=== PATIENT | female | born 1990 | race Two or more races ===

== ENCOUNTER 2017-12-18 19:29 | Emergency (ER) | payer OTHER, MEDICAID ==
--- NOTE | 2017-12-18 22:21 | ER Document Report ---
ED Medical Screen (RME) - General Chief Complaint: Vaginal Bleeding Stated Complaint: BLEEDING AND DISCHARGE Time Seen by Provider: 12/18/17 22:19 Notes: 26-year-old female, chief complaint of lower abdominal/pelvic pain with radiation to the flank, nausea, and vaginal bleeding that started this evening. She has an IUD. Denies vomiting, fever, abnormal vaginal discharge. TRAVEL OUTSIDE OF THE [place] IN LAST 30 DAYS: No - Related Data Allergies/Adverse Reactions: No Known Allergies Allergy (Unverified 12/18/17 19:33) Physical Exam - Vital signs Vitals: Temp Pulse Resp BP Pulse Ox 99.1 F 93 18 122/77 100 12/18/17 20:06 12/18/17 20:06 12/18/17 20:06 12/18/17 20:06 12/18/17 20:06 - General General appearance: Appears well In distress: None - Abdominal Tenderness: Nontender. No: Guarding Course - Vital Signs Vital signs: Temp Pulse Resp BP Pulse Ox 99.1 F 93 18 122/77 100 12/18/17 20:06 12/18/17 20:06 12/18/17 20:06 12/18/17 20:06 12/18/17 20:06
[2017-12-18 23:22] LABS: APPEARANCE,URINE SLIGHTLY-CLOUDY; BILIRUBIN,URINE NEGATIVE (NEGATIVE); COLOR,URINE YELLOW; GLUCOSE, URINE NEGATIVE (NEGATIVE); KETONES,URINE NEGATIVE (NEGATIVE); LEUKOCYTE ESTERASE,URINE NEGATIVE (NEGATIVE); NITRITE,URINE NEGATIVE (NEGATIVE); PROTEIN,URINE NEGATIVE (NEGATIVE); URINE SPECIFIC GRAVITY 1.021; UROBILINOGEN,URINE NEGATIVE mg/dL (<2.0)
--- NOTE | 2017-12-18 23:29 | RADIOLOGY REPORT (SQ) ---
US TRANSVAGINAL HISTORY: Sharp pelvic pain and bleeding. Nausea. IUD. COMPARISON: None. TECHNIQUE: Grayscale and color Doppler transvaginal ultrasound of the pelvis was performed. FINDINGS: The uterus measures 8.7 x 5.1 x 4.5 cm. The endometrium measures 7 mm in thickness and contains an IUD in situ. Cervix measures 3.2 cm. The right ovary measures 4.3 x 3.2 x 3.0 cm. The left ovary measures 5.4 x 5.4 x 5.2 cm and contains a 4.4 x 4.2 x 3.9 cm cyst. Both ovaries contain normal follicles. Normal color Doppler flow is seen in both ovaries. Trace free fluid is seen in the pelvis. IMPRESSION: 4.4 cm left ovarian cyst. IUD in situ. Trace free fluid likely physiologic.
--- NOTE | 2017-12-19 00:47 | ER Document Report ---
ED General - General Chief Complaint: Vaginal Bleeding Stated Complaint: BLEEDING AND DISCHARGE Time Seen by Provider: 12/18/17 22:19 TRAVEL OUTSIDE OF THE [place] IN LAST 30 DAYS: No - HPI Notes: 26-year-old female who presents with vaginal bleeding and discharge. Patient has several complaints, describes a couple of weeks of intermittent vaginal bleeding. Mostly pinkish. However today it was bright red and heavier. She states her periods are somewhat irregular usually which would not necessarily be due for her period now. She has had some intermittent vaginal discharge as well and some intermittent abdominal pain and cramping, not in the last couple of days. Occasional nausea but no vomiting. Was seen in a "free clinic" today and told she had a negative urine test. Gradual onset, nonradiating. No other modifying factors, no other associated symptoms, no other provocative or palliative factors. - Related Data Allergies/Adverse Reactions: No Known Allergies Allergy (Unverified 12/18/17 19:33) Past Medical History - Social History Smoking Status: Current Every Day Smoker Frequency of alcohol use: Occasional Drug Abuse: None Family History: Reviewed & Not Pertinent Patient has suicidal ideation: No Patient has homicidal ideation: No Endocrine Medical History: Reports: Hx Diabetes Mellitus Type 1 Renal/ Medical History: Denies: Hx Peritoneal Dialysis Review of Systems - Review of Systems Notes: Review of systems as in the history of present illness, otherwise negative x 10 systems. Physical Exam - Vital signs Vitals: Temp Pulse Resp BP Pulse Ox 99.1 F 93 18 122/77 100 12/18/17 20:06 12/18/17 20:06 12/18/17 20:06 12/18/17 20:06 12/18/17 20:06 - Notes Notes: General: Well developed . HEENT: Normocephalic, atraumatic. Pupils equal round reactive to light. No JVD. Chest: No trauma. Respiratory: Good air exchange, normal excursion. Cardiac: Regular rhythm. No murmurs or gallops. Abdomen: Soft, benign. Nondistended. Nontender. Back: No asymmetry or gross abnormality. Motor: Grossly normal power and tone. Neurologic: Alert, nonfocal. Cranial nerves II-12 are intact. Sensation intact. Vascular: Well perfused. Normal peripheral pulses. Skin: No petechiae or purpura. Course - Re-evaluation Re-evalutation: 12/19/17 00:47 Well-appearing 26-year-old female the after mentioned symptoms. Consider STI, . Less likely related complaint given the negative UPT this morning. Plan to proceed with follow-up of orders carried out by physician in triage. Ultrasound of note is reviewed, this is negative. Pelvic exam is pending 12/19/17 02:17 Available labs reviewed. CBC unremarkable, chemistries unremarkable. Serum test was initially not done, is pending/canceled. Ultrasound unremarkable. Patient is asking to be discharged states she is to go to work. She is refused to stay for pelvic examination or report on test. Of note, she had a negative UPT this morning. I have had extensive discussion with her and indicated I cannot conclusively rule out an emergent condition. I have again advised her to stay in complete her examination but she is politely refused, she does understand the risks and is discharged at her request. 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 - Vital Signs Vital signs: Temp Pulse Resp BP Pulse Ox 98.9 F 94 18 123/75 100 12/19/17 00:19 12/19/17 00:19 12/19/17 00:19 12/19/17 00:19 12/19/17 00:19 - Laboratory Result Diagrams: 12/19/17 01:34 Laboratory results interpreted by me: 12/18/17 23:10 Urine Blood MODERATE H Discharge - Discharge Clinical Impression: Dysfunctional uterine bleeding Condition: Stable Disposition: HOME, SELF-CARE Instructions: Dysfunctional Uterine Bleeding ([facility])
[2017-12-19 01:44] LABS: ABSOLUTE BASOPHILS # (AUTO) 0.1 10^3/uL (0.0-0.2); ABSOLUTE EOSINOPHILS # (AUTO) 0.2 10^3/uL (0.0-0.6); ABSOLUTE LYMPHOCYTES (AUTO) 3.1 10^3/uL (0.5-4.7); ABSOLUTE MONOCYTES (AUTO) 0.8 10^3/uL (0.1-1.4); ABSOLUTE NEUT (AUTO) 6.2 10^3/uL (1.7-8.2); BASOPHILS % (AUTO) 0.7 % (0-2); EOSINOPHILS % (AUTO) 1.7 % (0-6); HEMATOCRIT 41.8 % (36.0-47.0); HEMOGLOBIN 14.2 g/dL (12.0-15.5); LYMPHOCYTES % (AUTO) 29.7 % (13-45); MEAN CORPUSCULAR HEMOGLOBIN 31.2 pg (27.0-33.4); MEAN CORPUSCULAR HGB CONC 34.1 g/dL (32.0-36.0); MEAN CORPUSCULAR VOLUME 91 fl (80-97); PLATELET COUNT 284 10^3/uL (150-450); RED BLOOD COUNT 4.57 10^6/uL (3.72-5.28); RED CELL DISTRIBUTION WIDTH 12.8 % (11.5-14.0); SEGMENTED NEUTROPHILS % (AUTO) 59.9 % (42-78); TOTAL CELLS COUNTED % (AUTO) 100 %; WHITE BLOOD COUNT 10.3 10^3/uL (4.0-10.5)
[2017-12-19 02:23] VITALS: BP 115/78
== END 2017-12-19 02:23 | disposition home or self-care (01) ==
LOC: ER 19:29
DX: N93.8 Other specified abnormal uterine and vaginal bleeding (principal); F17.200 Nicotine dependence, unspecified, uncomplicated; E10.9 Type 1 diabetes mellitus without complications
CPT/HCPCS: 36415; 76830; 81001; 85025; 93976; 99284

== ENCOUNTER 2018-08-01 10:30 | Emergency (ER) | payer MEDICAID, OTHER ==
[2018-08-01] MEDS ORDERED: ONDANSETRON HCL INJ/PF 4 MG/2 ML SDV IV ONE (11:58)
[2018-08-01] MEDS ORDERED: NORMAL SALINE 1000 ML 1,000 ML IV ONE (11:59)
--- NOTE | 2018-08-01 12:01 | ER Document Report ---
ED Medical Screen (RME) - General Chief Complaint: Cold Symptoms Stated Complaint: VOMITING Time Seen by Provider: 08/01/18 11:36 Mode of Arrival: Ambulatory Information source: Patient Notes: Patient presents emergency department positive flu with complaints of nausea vomiting. Patient is a diabetic. Reports her sugars have been high. Reports that she went to her primary care provider with same symptoms for the past 4 days and was positive for flu. Was given something for the cough and vomiting but it is not working. She reports she is been vomiting since last night unable to hold fluids down. Reports fever up and down. Reports difficulty breathing. Respiratory rate even unlabored patient is talking in clear sentences no distress. Patient is wearing paper scrubs because when she vomited she also incontinent of urine I have greeted and performed a rapid initial assessment of this patient. A comprehensive ED assessment and evaluation of the patient, analysis of test r esults and completion of the medical decision making process will be conducted by additional ED providers. Dictation of this chart was performed using voice recognition software; therefore, there may be some unintended grammatical errors. TRAVEL OUTSIDE OF THE [place] IN LAST 30 DAYS: No - Related Data Allergies/Adverse Reactions: No Known Allergies Allergy (Unverified 12/18/17 19:33) Past Medical History Endocrine Medical History: Reports: Hx Diabetes Mellitus Type 1 Renal/ Medical History: Denies: Hx Peritoneal Dialysis Past Surgical History: Reports: Hx Section Physical Exam - Vital signs Vitals: Temp Pulse Resp BP Pulse Ox 98.4 F 113 H 16 131/65 H 96 08/01/18 10:35 08/01/18 10:35 08/01/18 10:35 08/01/18 10:35 08/01/18 10:35 Course - Vital Signs Vital signs: Temp Pulse Resp BP Pulse Ox 98.4 F 113 H 16 131/65 H 96 08/01/18 10:35 08/01/18 10:35 08/01/18 10:35 08/01/18 10:35 08/01/18 10:35
[2018-08-01 12:56] LABS: VENOUS BLOOD BASE EXCESS -9.5 mmol/L; VENOUS BLOOD HCO3 15.7 mmol/L (20-32); VENOUS BLOOD PCO2 32.5 mmHg (35-63); VENOUS BLOOD PH 7.3 (7.30-7.42)
[2018-08-01 13:02] LABS: ABSOLUTE LYMPHOCYTES (AUTO) 0.7 10^3/uL (0.5-4.7); ABSOLUTE MONOCYTES (AUTO) 0.7 10^3/uL (0.1-1.4); ABSOLUTE NEUT (AUTO) 6.6 10^3/uL (1.7-8.2); BASOPHILS % (AUTO) 0.3 % (0-2); HEMATOCRIT 44.6 % (36.0-47.0); HEMOGLOBIN 15.2 g/dL (12.0-15.5); LYMPHOCYTES % (AUTO) 8.2 % (13-45); MEAN CORPUSCULAR HEMOGLOBIN 31.1 pg (27.0-33.4); MEAN CORPUSCULAR VOLUME 92 fl (80-97); PLATELET COUNT 213 10^3/uL (150-450); RED BLOOD COUNT 4.87 10^6/uL (3.72-5.28); RED CELL DISTRIBUTION WIDTH 13.2 % (11.5-14.0); SEGMENTED NEUTROPHILS % (AUTO) 82.5 % (42-78); TOTAL CELLS COUNTED % (AUTO) 100 %
[2018-08-01 13:24] LABS: ALANINE AMINOTRANSFERASE 41 U/L (9-52); ALBUMIN 4.3 g/dL (3.5-5.0); ALKALINE PHOSPHATASE 95 U/L (38-126); ANION GAP 18 (5-19); ASPARTATE AMINO TRANSFERASE 32 U/L (14-36); BILIRUBIN,DIRECT 0.4 mg/dL (0.0-0.4); BILIRUBIN,TOTAL 0.6 mg/dL (0.2-1.3); BLOOD UREA NITROGEN 14 mg/dL (7-20); CALCIUM 9.4 mg/dL (8.4-10.2); CARBON DIOXIDE 14 mmol/L (22-30); CHLORIDE 102 mmol/L (98-107); GLUCOSE 340 mg/dL (75-110); POTASSIUM 5.1 mmol/L (3.6-5.0); SODIUM 134.3 mmol/L (137-145); TOTAL PROTEIN 7.5 g/dL (6.3-8.2)
[2018-08-01 13:37] LABS: APPEARANCE,URINE SLIGHTLY-CLOUDY; BILIRUBIN,URINE NEGATIVE (NEGATIVE); COLOR,URINE YELLOW; GLUCOSE, URINE >=500 mg/dL (NEGATIVE); KETONES,URINE 80 mg/dL (NEGATIVE); LEUKOCYTE ESTERASE,URINE NEGATIVE (NEGATIVE); NITRITE,URINE NEGATIVE (NEGATIVE); PROTEIN,URINE NEGATIVE (NEGATIVE); URINE SPECIFIC GRAVITY 1.032; UROBILINOGEN,URINE NEGATIVE mg/dL (<2.0)
[2018-08-01] MEDS ORDERED: RINGERS SOLUTION,LACTATED 1,000 ML IV ONE (14:14)
[2018-08-01] MEDS ORDERED: KETOROLAC TROMETHAMINE INJ/PF 30 MG/1 ML SDV IV ONE (14:24)
[2018-08-01] MEDS ORDERED: IPRATROPIUM/ALBUTEROL 0.5-2.5 MG/3 ML AMPUL NEB ONE (14:24)
--- NOTE | 2018-08-01 14:47 | ER Document Report ---
ED General - General Chief Complaint: Cold Symptoms Stated Complaint: VOMITING Time Seen by Provider: 08/01/18 11:36 Primary Care Provider: MARCELLO DUMONT MD [Primary Care Provider] - Follow up as needed Mode of Arrival: Ambulatory Information source: Patient Notes: 27-year-old female with diabetes, asthma presents with nausea, vomiting, cough and myalgias that started 3 days prior to arrival. Patient states that she was seen by her primary care physician and tested positive for influenza. She was given nausea medication and cough medicine but states that she continued to vomit. TRAVEL OUTSIDE OF THE [place] IN LAST 30 DAYS: No - HPI Onset: Other Onset/Duration: Persistent Quality of pain: Achy Associated symptoms: Body/muscle aches, Productive cough, Nausea, Vomiting, Shortness of breath. denies: Diarrhea Exacerbated by: Coughing Relieved by: Denies Similar symptoms previously: Yes Recently seen / treated by doctor: Yes - Related Data Allergies/Adverse Reactions: No Known Allergies Allergy (Unverified 12/18/17 19:33) Past Medical History - General Information source: Patient - Social History Smoking Status: Current Every Day Smoker Cigarette use (# per day): Yes - 8 Smoking Education Provided: Yes - Smoking cessation counseling was provided for 4 minutes at the bedside Frequency of alcohol use: None Drug Abuse: None Lives with: Family Family History: Reviewed & Not Pertinent Patient has suicidal ideation: No Patient has homicidal ideation: No Endocrine Medical History: Reports: Hx Diabetes Mellitus Type 1 Renal/ Medical History: Denies: Hx Peritoneal Dialysis Past Surgical History: Reports: Hx Section Review of Systems - Review of Systems Notes: REVIEW OF SYSTEMS: CONSTITUTIONAL : Denies fever, chills, or sweats. Denies weight loss, recent hospitalizations. EENT: Denies visual changes, eye pain. Denies sore throat, oral lesions, difficulty swallowing. CARDIOVASCULAR: Denies chest pain. Denies palpitations. Denies lower extremity edema. RESPIRATORY: Denies wheezing. GASTROINTESTINAL: Denies abdominal pain or distention. Denies diarrhea. Denies blood in vomitus, stools, or per rectum. Denies black, tarry stools. Denies constipation. GENITOURINARY: Denies difficulty urinating, painful urination, frequency, blood in urine, or vaginal discharge. MUSCULOSKELETAL: Denies back or neck pain or stiffness. Denies joint pain or swelling. SKIN: Denies rash, lesions or sores. HEMATOLOGIC : Denies easy bruising or bleeding. LYMPHATIC: Denies swollen glands. NEUROLOGICAL: Denies confusion or altered mental status. Denies loss of consciousness. Denies dizziness or lightheadedness. Denies headache. Denies weakness or paralysis. Denies problems difficulty with ambulation, slurred speech. Denies sensory loss, numbness, or tingling. Denies seizures. PSYCHIATRIC: Denies anxiety or stress. Denies depression, suicidal ideation, or homicidal ideation. Denies visual or auditory hallucinations. Physical Exam - Vital signs Vitals: Temp Pulse Resp BP Pulse Ox 98.4 F 113 H 16 131/65 H 96 08/01/18 10:35 08/01/18 10:35 08/01/18 10:35 08/01/18 10:35 08/01/18 10:35 - Notes Notes: PHYSICAL EXAMINATION: GENERAL: Well-appearing, well-nourished and in no acute distress. HEAD: Atraumatic, normocephalic. EYES: Pupils equal round and reactive to light, extraocular movements intact, conjunctiva are normal. ENT: Nares patent, oropharynx clear without exudates. Dry mucous membranes. NECK: Normal range of motion, supple without lymphadenopathy LUNGS: Breath sounds clear to auscultation bilaterally and equal. No wheezes rales or rhonchi. HEART: Regular rate and rhythm without murmurs ABDOMEN: Soft, nontender, nondistended abdomen. No guarding, no rebound. No masses appreciated. Female : deferred Musculoskeletal: Normal range of motion, no pitting or edema. No cyanosis. NEUROLOGICAL: Cranial nerves grossly intact. Normal speech, normal gait. Normal sensory, motor exams PSYCH: Normal mood, normal affect. SKIN: Warm, Dry, normal turgor, no rashes or lesions noted. Course - Re-evaluation Re-evalutation: Laboratory 08/01/18 08/01/18 08/01/18 12:25 12:39 12:39 WBC 8.0 RBC 4.87 Hgb 15.2 Hct 44.6 MCV 92 MCH 31.1 MCHC 34.0 RDW 13.2 Plt Count 213 Seg Neutrophils % 82.5 H Lymphocytes % 8.2 L Monocytes % 9.0 Eosinophils % 0.0 Basophils % 0.3 Absolute Neutrophils 6.6 Absolute Lymphocytes 0.7 Absolute Monocytes 0.7 Absolute Eosinophils 0.0 Absolute Basophils 0.0 VBG pH VBG pCO2 VBG HCO3 VBG Base Excess Sodium 134.3 L Potassium 5.1 H Chloride 102 Carbon Dioxide 14 L Anion Gap 18 BUN 14 Creatinine 0.71 Est GFR ( Amer) > 60 Est GFR (Non-Af Amer) > 60 Glucose 340 H POC Glucose 321 H Calcium 9.4 Total Bilirubin 0.6 Direct Bilirubin 0.4 Neonat Total Bilirubin Not Reportable Neonat Direct Bilirubin Not Reportable Neonat Indirect Bili Not Reportable AST 32 ALT 41 Alkaline Phosphatase 95 Total Protein 7.5 Albumin 4.3 Serum HCG, Qual Urine Color Urine Appearance Urine pH Ur Specific [place] Urine Protein Urine Glucose (UA) Urine Ketones Urine Blood Urine Nitrite Urine Bilirubin Urine Urobilinogen Ur Leukocyte Esterase Urine WBC (Auto) Urine RBC (Auto) Squamous Epi Cells Auto Urine Mucus (Auto) Urine Ascorbic Acid 08/01/18 08/01/18 08/01/18 12:39 12:39 12:39 WBC RBC Hgb Hct MCV MCH MCHC RDW Plt Count Seg Neutrophils % Lymphocytes % Monocytes % Eosinophils % Basophils % Absolute Neutrophils Absolute Lymphocytes Absolute Monocytes Absolute Eosinophils Absolute Basophils VBG pH 7.30 VBG pCO2 32.5 L VBG HCO3 15.7 L VBG Base Excess -9.5 Sodium Potassium Chloride Carbon Dioxide Anion Gap BUN Creatinine Est GFR ( Amer) Est GFR (Non-Af Amer) Glucose POC Glucose Calcium Total Bilirubin Direct Bilirubin Neonat Total Bilirubin Neonat Direct Bilirubin Neonat Indirect Bili AST ALT Alkaline Phosphatase Total Protein Albumin Serum HCG, Qual NEGATIVE Urine Color YELLOW Urine Appearance SLIGHTLY-CLOUDY Urine pH 5.0 Ur Specific [place] 1.032 Urine Protein NEGATIVE Urine Glucose (UA) >=500 H Urine Ketones 80 H Urine Blood NEGATIVE Urine Nitrite NEGATIVE Urine Bilirubin NEGATIVE Urine Urobilinogen NEGATIVE Ur Leukocyte Esterase NEGATIVE Urine WBC (Auto) 1 Urine RBC (Auto) 0 Squamous Epi Cells Auto 2 Urine Mucus (Auto) RARE Urine Ascorbic Acid NEGATIVE 08/01/18 15:13 Patient presents with cough, vomiting, diarrhea, and fever at home consistent with a diagnosis of influenza. Influenza testing is positive at her primary care physician's office. Patient appears ill, mildly dehydrated but is in no acute distress. Lung sounds clear. Able to tolerate oral intake without difficulty here in the emergency department. After risks and benefits conversation with the patient regarding the use of Tamiflu, they have elected to use supportive care without Tamiflu based on concerns about lack of efficacy as well as the side effect profile. CBC is without leukocytosis or anemia. CMP does show hyperglycemia without evidence of DKA. At this time will discharge with return precautions and follow-up recommendations. Verbal discharge inst ructions given a the bedside and opportunity for questions given. Medication warnings reviewed. Patient is in agreement with this plan and has verbalized understanding of return precautions and the need for primary care follow-up in the next 24-72 hours. - Vital Signs Vital signs: Temp Pulse Resp BP Pulse Ox 98.0 F 111 H 20 121/58 L 99 08/01/18 13:48 08/01/18 13:48 08/01/18 13:48 08/01/18 13:48 08/01/18 13:48 - Laboratory Result Diagrams: 08/01/18 12:39 08/01/18 12:39 Laboratory results interpreted by me: 08/01/18 08/01/18 08/01/18 12:25 12:39 12:39 Seg Neutrophils % 82.5 H Lymphocytes % 8.2 L VBG pCO2 VBG HCO3 Sodium 134.3 L Potassium 5.1 H Carbon Dioxide 14 L Glucose 340 H POC Glucose 321 H Urine Glucose (UA) Urine Ketones 08/01/18 08/01/18 12:39 12:39 Seg Neutrophils % Lymphocytes % VBG pCO2 32.5 L VBG HCO3 15.7 L Sodium Potassium Carbon Dioxide Glucose POC Glucose Urine Glucose (UA) >=500 H Urine Ketones 80 H Discharge - Discharge Clinical Impression: Influenza, Hyperglycemia due to type 1 diabetes mellitus, Cough Condition: Good Disposition: HOME, SELF-CARE Additional Instructions: You have influenza. There is no treatment that is effective for this diagnosis other than supportive care at home. This includes drinking plenty of fluids, using Tylenol or ibuprofen as needed for fever and discomfort, and Zofran as needed for nausea and vomiting. Please follow closely with you primary care physician the next 1-2 days regarding this diagnosis. Return to the emergency department immediately if you began to have persistent vomiting prevents you from being able to keep fluids down for more than 12 hours, you pass out, you began having difficulty breathing, you become confused, or you have any other symptoms that are worrisome to you. Prescriptions: Ondansetron [Zofran Odt 4 mg Tablet] 1 - 2 tab PO Q4H PRN #15 tab.rapdis PRN Reason: For Nausea/Vomiting Forms: Return to Work Referrals: MARCELLO DUMONT MD [Primary Care Provider] - Follow up as needed
[2018-08-01] MEDS ORDERED: ALBUTEROL SULFATE HFA (90 MCG/PUFF) 8 GM MDI (1 MDI/ER DISP) IH SCH (15:00)
[2018-08-01 15:44] VITALS: BP 105/67
== END 2018-08-01 15:44 | disposition home or self-care (01) ==
LOC: ER 10:30
DX: J11.1 Influenza due to unidentified influenza virus with other respiratory manifestations (principal); E10.649 Type 1 diabetes mellitus with hypoglycemia without coma; J45.909 Unspecified asthma, uncomplicated; R11.2 Nausea with vomiting, unspecified; R19.7 Diarrhea, unspecified; R05 Cough; M79.10 Myalgia, unspecified site; R06.02 Shortness of breath; F17.210 Nicotine dependence, cigarettes, uncomplicated; Z71.6 Tobacco abuse counseling
CPT/HCPCS: 94640; 99283; 96361; 96374; 96375; 36415; 82962; 84703; 85025; 80053; 81001; 82803; J1885; J2405; J7030; J7120; J3490; J7620

== ENCOUNTER 2019-07-07 12:22 | Emergency (ER) | payer SELFPAY ==
--- NOTE | 2019-07-07 12:38 | ER Document Report ---
HPI - HPI Patient complains to provider of: cough Time Seen by Provider: 07/07/19 12:29 Onset: Other Pain Level: 1 Context: 28-year-old female history of diabetes and the flu presents emergency department with productive cough with yellow sputum. Reports it was worse last night. Reports she had the flu last week. She reports she is feeling better but now she is worried she may have pneumonia. Denies fever vomiting diarrhea. Reports the cough was worse last night. Respiratory rate even unlabored no retractions, no cough noted during entire interview and assessment. Patient reports that she did go to her PCP on Monday and was treated with cough medicine with Phenergan. She reports is not helping. Patient denies recent trip overseas denies recent exposure to anybody with the coronavirus. She does reports she works at the [employer] and interacts with people all day long. Patient has been out sick for the past week with the flu. Associated Symptoms: Productive cough Exacerbated by: Denies Relieved by: Denies Similar symptoms previously: No Recently seen / treated by doctor: No - REPRODUCTIVE Reproductive: DENIES: : Past Medical History - General Information source: Patient Last Menstrual Period: last month - Social History Smoking Status: Current Every Day Smoker Cigarette use (# per day): Yes Chew tobacco use (# tins/day): No Frequency of alcohol use: None Drug Abuse: None Lives with: Family Family History: Reviewed & Not Pertinent Patient has suicidal ideation: No Patient has homicidal ideation: No Endocrine Medical History: Reports: Hx Diabetes Mellitus Type 1 Renal/ Medical History: Denies: Hx Peritoneal Dialysis Past Surgical History: Reports: Hx Section Vertical Provider Document - CONSTITUTIONAL Agree With Documented VS: Yes Exam Limitations: No Limitations General Appearance: WD/WN, No Apparent Distress - INFECTION CONTROL TRAVEL OUTSIDE OF THE [place] IN LAST 30 DAYS: No - HEENT HEENT: Atraumatic, Normal ENT Exam, Normocephalic. negative: Conjuctival Injection, Pharyngeal Exudate, Pharyngeal Erythema, Tympanic Membrane Red, Tympanic Membrane Bulging - NECK Neck: Normal Inspection, Supple - RESPIRATORY Respiratory: Breath Sounds Normal, No Respiratory Distress. negative: Rhonchi, Wheezing - CARDIOVASCULAR Cardiovascular: Regular Rate, Regular Rhythm - GI/ABDOMEN Gastrointestinal: Abdomen Soft, Abdomen Non-Tender - MUSCULOSKELETAL/EXTREMETIES Musculoskeletal/Extremeties: ROE LEAL - NEURO Level of Consciousness: Awake, Alert, Appropriate Motor/Sensory: No Motor Deficit - DERM Integumentary: Warm, Dry, No Rash Course - Re-evaluation Re-evalutation: Chest X-Ray 07/07/19 12:35 IMPRESSION: NO ACUTE RADIOGRAPHIC FINDING IN THE CHEST. 07/07/19 13:53 Patient instructed on negative chest x-ray. Patient is alert and oriented no coughing during entire discussion. Respiratory rate even unlabored. Patient was instructed to push fluids good handwashing follow-up with her primary care provider. She was also instructed to return for worsening symptoms or concerns. She verbalized understanding to all instructions. - Vital Signs Vital signs: Temp Pulse Resp BP Pulse Ox 98.3 F 100 18 127/71 H 96 07/07/19 12:27 07/07/19 12:27 07/07/19 12:27 07/07/19 12:27 07/07/19 12:27 - Diagnostic Test Radiology reviewed: Image reviewed, Reports reviewed Discharge - Discharge Clinical Impression: Cough Condition: Stable Disposition: HOME, SELF-CARE Additional Instructions: *You have been evaluated for a cough *Your chest x-ray was negative for pneumonia *Increase fluid intake , good handwashing *Take over the counter cough medicine as indicated *Monitor your temperature, take Tylenol as indicated *Follow up with a primary care provider within 5 days for recheck *Return to ED for worsening condition, changes, needs Forms: Elevated Blood Pressure, Return to Work Referrals: MARCELLO DUMONT MD [NO LOCAL MD] - Follow up in 3-5 days
--- NOTE | 2019-07-07 13:24 | RADIOLOGY REPORT (SQ) ---
EXAM DESCRIPTION: CHEST 2 VIEWS COMPLETED DATE/TIME: 07/07/2019 1:14 pm REASON FOR STUDY: cough COMPARISON: None. EXAM PARAMETERS: NUMBER OF VIEWS: two views TECHNIQUE: Digital Frontal and Lateral radiographic views of the chest acquired. RADIATION DOSE: NA LIMITATIONS: none FINDINGS: LUNGS AND PLEURA: No opacities, masses or pneumothorax. No pleural effusion. MEDIASTINUM AND HILAR STRUCTURES: No masses or contour abnormalities. HEART AND VASCULAR STRUCTURES: Heart normal size. No evidence for failure. BONES: No acute findings. HARDWARE: None in the chest. OTHER: No other significant finding. IMPRESSION: NO ACUTE RADIOGRAPHIC FINDING IN THE CHEST. TECHNICAL DOCUMENTATION: JOB ID: [id number] 2010 [employer]- All Rights Reserved Reading location - IP/workstation name: [email or web address]
[2019-07-07 13:54] VITALS: BP 123/76
== END 2019-07-07 13:54 | disposition home or self-care (01) ==
LOC: ER 12:22
DX: R05 Cough (principal); F17.210 Nicotine dependence, cigarettes, uncomplicated; E10.9 Type 1 diabetes mellitus without complications
CPT/HCPCS: 71046; 99283